=== PATIENT | female | born 1960 | race Caucasian/White ===

== ENCOUNTER 2024-03-25 10:53 | Observation (INO) | payer BC, SELFPAY ==
[2024-03-25] MEDS ORDERED: Ondansetron PF 4 MG/2 ML Vial ONE (11:18)
[2024-03-25] MEDS ORDERED: Ketorolac Tromethamine 30 MG (1 mL) VIAL ONE (11:18)
[2024-03-25 11:31] LABS: #Basophils 0.03 10x3/uL (0.0-0.2); #Eosinphils Less than 0.03 10x3/uL (0.0-0.7); %Basophils 0.3 % (0.0-1.0); %Eosinophils 0.2 % (0.0-10.0); %Lymphocytes 9.8 % (21.0-51.0); %Monocytes 12.2 % (0.0-10.0); Hematocrit 35.5 % (36.0-47.0); Hemoglobin 12.2 g/dL (12.0-16.0); Mean Corpuscular HGB CONC 34.4 g/dL (32.0-36.0); Mean Corpuscular Hemoglobin 29.2 pg (27.0-31.0); Mean Corpuscular Volume 84.9 fL (78.0-98.0); Mean Platelet Volume 10.8 fL (7.4-10.4); Platelet Count 291 10x3/uL (130-400); RBC Distribution Width 11.5 % (11.5-14.5); Red Blood Cell (RBC) Count 4.18 mill/uL (4.20-5.40)
[2024-03-25] MEDS ORDERED: Iopamidol-370 76% 500 ML MDV (1 ML CHARGE) ONE (11:55)
[2024-03-25 12:08] LABS: ALT (SGPT) 13 U/L (8-55); AST (SGOT) 19 U/L (5-34); Albumin 4.1 g/dL (3.4-4.8); Alkaline Phosphatase 106 U/L (40-110); Anion Gap 13 mmol/L (10-20); BUN (Urea Nitrogen) 8 mg/dL (9.8-20.1); Bilirubin, Total 2.1 mg/dL (0.2-1.2); Calc. Creatinine Clearance 0 mL/min (70-130); Calcium 9.9 mg/dL (7.8-10.44); Carbon Dioxide 25 mmol/L (23-31); Chloride 104 mmol/L (98-107); Estimated GFR 95; Globulin 2.9 g/dL (2.4-3.5); Glucose 119 mg/dL (80-115); Lipase 9 U/L (8-78); Potassium 3.4 mmol/L (3.5-5.1); Sodium 139 mmol/L (136-145)
[2024-03-25 12:12] LABS: Troponin I Less than 0.010 ng/mL (< 0.028)
[2024-03-25] MEDS ORDERED: Senokot S 8.6-50 MG TAB PO PRN (14:21)
[2024-03-25] MEDS ORDERED: Dexamethasone 10 MG/ML VIAL ONE (14:21)
[2024-03-25] MEDS ORDERED: Acetaminophen 325 MG TAB PO PRN (14:21)
[2024-03-25] MEDS ORDERED: Ondansetron PF 4 MG/2 ML Vial IVP PRN (14:21)
[2024-03-25] MEDS ORDERED: Calcium Carbonate 500 MG ChewTAB PO PRN (14:21)
[2024-03-25] MEDS: Aspirin Chewable 81 MG TAB PO SCH (15:32)
[2024-03-25] MEDS: Potassium Chloride 20 MEQ TAB PO SCH (15:32)
[2024-03-25] MEDS: Pantoprazole DR 40 MG TAB PO SCH (15:33)
[2024-03-25] MEDS: Sodium Chloride 0.9% 1,000 ML IV SCH (15:33)
[2024-03-25 15:40] VITALS: BMI 23.3
[2024-03-25 16:32] LABS: Troponin I Less than 0.010 ng/mL (< 0.028)
[2024-03-25 18:48] LABS: Troponin I Less than 0.010 ng/mL (< 0.028)
[2024-03-25] MEDS: traMADol HCl 50 MG TAB PO PRN (18:54)
[2024-03-25] MEDS: Ibuprofen 600 MG TAB PO SCH (19:54)
[2024-03-26 04:04] LABS: #Basophils Less than 0.03 10x3/uL (0.0-0.2); #Eosinphils Less than 0.03 10x3/uL (0.0-0.7); %Basophils 0.1 % (0.0-1.0); %Monocytes 16.8 % (0.0-10.0); %Neutrophils 74.6 % (42.0-75.0); Hematocrit 31.2 % (36.0-47.0); Hemoglobin 10.6 g/dL (12.0-16.0); Mean Corpuscular Hemoglobin 29.7 pg (27.0-31.0); Mean Corpuscular Volume 87.4 fL (78.0-98.0); Platelet Count 249 10x3/uL (130-400); RBC Distribution Width 11.7 % (11.5-14.5); Red Blood Cell (RBC) Count 3.57 mill/uL (4.20-5.40)
[2024-03-26 04:24] LABS: Hemoglobin A1c 5.1 % (4.0-6.0)
[2024-03-26 04:26] LABS: ALT (SGPT) 20 U/L (8-55); AST (SGOT) 15 U/L (5-34); Albumin 3.4 g/dL (3.4-4.8); Alkaline Phosphatase 92 U/L (40-110); Anion Gap 16 mmol/L (10-20); BUN (Urea Nitrogen) 13 mg/dL (9.8-20.1); Bilirubin, Total 1.4 mg/dL (0.2-1.2); Calc. Creatinine Clearance 76 mL/min (70-130); Calcium 9.5 mg/dL (7.8-10.44); Carbon Dioxide 22 mmol/L (23-31); Chloride 106 mmol/L (98-107); Cholesterol 127 mg/dl (< 200 Desired); Estimated GFR 89; Globulin 2.3 g/dL (2.4-3.5); Glucose 147 mg/dL (80-115); HDL Cholesterol 63 mg/dL (>60 Neg Risk); LDL Cholesterol, Calculated 57 mg/dL; Magnesium 2.1 mg/dL (1.6-2.6); Potassium 4.1 mmol/L (3.5-5.1); Protein, Total 5.7 g/dL (5.8-8.1); Sodium 140 mmol/L (136-145); Triglycerides 36 mg/dL (Less than 150)
[2024-03-26] MEDS: Pantoprazole DR 40 MG TAB PO SCH (07:36)
[2024-03-26] MEDS: Aspirin Chewable 81 MG TAB PO SCH (07:39)
[2024-03-26] MEDS ORDERED: Enoxaparin 40 MG (0.4 mL) SYRINGE SC SCH (09:00)
[2024-03-27 04:05] LABS: #Basophils 0.07 10x3/uL (0.0-0.2); %Eosinophils 3.4 % (0.0-10.0); %Lymphocytes 36.4 % (21.0-51.0); %Monocytes 10.9 % (0.0-10.0); %Neutrophils 47.9 % (42.0-75.0); Hematocrit 29.8 % (36.0-47.0); Hemoglobin 10.1 g/dL (12.0-16.0); Mean Corpuscular HGB CONC 33.9 g/dL (32.0-36.0); Mean Corpuscular Volume 88.4 fL (78.0-98.0); Mean Platelet Volume 11.1 fL (7.4-10.4); Platelet Count 270 10x3/uL (130-400); RBC Distribution Width 11.9 % (11.5-14.5); Red Blood Cell (RBC) Count 3.37 mill/uL (4.20-5.40)
[2024-03-27 04:36] LABS: ALT (SGPT) 11 U/L (8-55); AST (SGOT) 12 U/L (5-34); Albumin 3.1 g/dL (3.4-4.8); Alkaline Phosphatase 79 U/L (40-110); Anion Gap 14 mmol/L (10-20); BUN (Urea Nitrogen) 20 mg/dL (9.8-20.1); Bilirubin, Total 0.6 mg/dL (0.2-1.2); Calc. Creatinine Clearance 73 mL/min (70-130); Calcium 9.3 mg/dL (7.8-10.44); Carbon Dioxide 25 mmol/L (23-31); Chloride 108 mmol/L (98-107); Estimated GFR 85; Globulin 2.7 g/dL (2.4-3.5); Glucose 85 mg/dL (80-115); Potassium 3.5 mmol/L (3.5-5.1); Protein, Total 5.8 g/dL (5.8-8.1); Sodium 143 mmol/L (136-145)
[2024-03-27 12:43] VITALS: BP 150/83; TEMP 98
== END 2024-03-27 13:33 | disposition home or self-care (01) ==
LOC: SUATTDRO 10:53 → ERS 10:53 → 2SW 15:22
PROVIDERS: ADMIT Internal Medicine; ATTEND Family Medicine
PROC: B246ZZZ Ultrasonography of Right and Left Heart (ICD-10-PCS; principal; 2024-03-27)
DX: R07.2 Precordial pain (principal); G50.0 Trigeminal neuralgia; E03.9 Hypothyroidism, unspecified; E78.5 Hyperlipidemia, unspecified; I10 Essential (primary) hypertension; I47.10 Supraventricular tachycardia, unspecified; I31.9 Disease of pericardium, unspecified
CPT/HCPCS: 36415; 71046; 71275; 80053; 80061; 82728; 83036; 83690; 83735; 83880; 84145; 84484; 85025; 86141; 93005; 93010; 93306; 96374; 96375; G0378; J1100; J1885; J2405; Q9967